=== PATIENT | female | born 1955 | race Caucasian/White ===

== ENCOUNTER → 2019-10-10 | Outpatient (CLI) | payer MEDICARE, OTHER | END | disposition home or self-care (01) | LOC: RAH 11:55 | PROVIDERS: ATTEND Internal Medicine Critical Care Medicine | DX: R07.9 Chest pain, unspecified (principal) | CPT/HCPCS: 71046 ==

== ENCOUNTER → 2019-12-13 | Outpatient (CLI) | payer MEDICARE, OTHER | END | disposition home or self-care (01) | LOC: SHCH 13:06 | PROVIDERS: ATTEND Internal Medicine Cardiovascular Disease | DX: I71.4 Abdominal aortic aneurysm, without rupture (principal); R07.9 Chest pain, unspecified; I87.2 Venous insufficiency (chronic) (peripheral) | CPT/HCPCS: 93970; 93978 ==

== ENCOUNTER → 2019-12-18 | Outpatient (CLI) | payer OTHER | END | disposition home or self-care (01) | LOC: OIH 09:12 | PROVIDERS: ATTEND Internal Medicine Cardiovascular Disease | DX: Z13.6 Encounter for screening for cardiovascular disorders (principal) | CPT/HCPCS: 75571 ==

== ENCOUNTER → 2019-12-18 | Outpatient (CLI) | payer MEDICARE, OTHER | END | disposition home or self-care (01) | LOC: SHCH 09:11 | PROVIDERS: ATTEND Internal Medicine Cardiovascular Disease | DX: I35.8 Other nonrheumatic aortic valve disorders (principal) | CPT/HCPCS: 93306 ==